=== PATIENT | female | born 1980 | race African-American/Black ===

== ENCOUNTER 2017-05-15 07:37 | Day surgery (SDC) | payer OTHER ==
[~2017-05-15] VITALS: Ht 167.6 cm; Wt 83.6 kg
[~2017-05-15 07:37] MED LIST: BENTYL10 MG PO; CARAFATE1 GM PO; ELAVIL25 MG PO; FIORICET 50-301 EACH PO; HYDROCHLOROTHIA25 MG PO; HYDROCODON-ACE1 EAC7 PO; IMITREX25 MG PO; LOPRESSOR25 MG PO; MACROBID100 MG PO; MIRENA52 MG IY; MOBIC7.5 MG PO; MOTRIN800 MG PO; NAPROSYN500 MG PO; NORVASC10 MG PO; PRILOSEC20 MG PO; PROMETHAZINE HC25 M1 PO; REGLAN10 MG PO; ROXICODONE5 MG PO; TORADOL10 MG PO; TRAMADOL; TRAMADOL HCL50 MG PO; ULTRAM50 MG PO; VALIUM2 MG PO; ZOFRAN ODT4 MG PO; ZOFRAN ODT8 MG PO
[2017-05-15] MEDS ORDERED: LISINOPRIL20 MG PO (08:42)
[2017-05-15 08:46] VITALS: BP 134/92
[2017-05-15 11:00] VITALS: BP 174/93
[2017-05-15 12:10] VITALS: BP 142/91
== END 2017-05-15 12:20 | disposition home or self-care (01) ==
LOC: SDC 07:37
PROC: 0UPD7HZ Removal of Contraceptive Device from Uterus and Cervix, Via Natural or Artificial Opening (ICD-10-PCS; principal; 2017-05-15)
DX: Z30.432 Encounter for removal of intrauterine contraceptive device (principal); D25.9 Leiomyoma of uterus, unspecified; E66.9 Obesity, unspecified; Z68.29 Body mass index [BMI] 29.0-29.9, adult; I10 Essential (primary) hypertension; K21.9 Gastro-esophageal reflux disease without esophagitis
CPT/HCPCS: J2250; J2405; J3010